=== PATIENT | male | born 2000 | race African-American/Black ===

== ENCOUNTER 2025-09-22 10:22 | Emergency (ER) | payer SELFPAY ==
[2025-09-22 10:33] VITALS: BP 120/67; PULSE 101; RESP 16; TEMP 37.7; O2SAT 99
[2025-09-22 12:29] LABS: Influenza A QL RT-PCR Negative (Negative); Influenza B QL RT-PCR Negative (Negative); RSV RNA, RT-PCR Negative (Negative); SARS-CoV-2 RNA PCR Negative (Negative)
[2025-09-22 12:46] LABS: Strep Group A RT-PCR DETECTED (Negative)
[2025-09-22] MEDS: ACETAMINOPHEN 500 MG TABLET 1000 MG PO (12:48)
[2025-09-22] MEDS: KETOROLAC 10 MG TABLET PO (12:48)
[2025-09-22 13:25] VITALS: BP 122/76; PULSE 80; RESP 16; O2SAT 98
[2025-09-22] MEDS: AMOXICILLIN 500 MG CAPSULE PO (13:26)
--- OUTSIDE RECORDS SUMMARY | 2025-09-22 14:15 | XMS_ITS | Encounter Summary ---
Author Organization [facility] Address 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 Gender Identity Not on file Sexual Orientation Not on file Occupation Industry 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 Not on file Not on file Not on file 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 Not on file Not on file Not on jacob e documented as of this encounter Plan of Treatment Upcoming Encounters Date Type Department Care Team (Late st Contact Info) Description 06/16/2026 8:30 AM CDT Office Visit [facility] Primary Care [place] [address] [place] [address] [place] [address] [place] [address] documented as of this encounter Visit Diagnoses Not on filedocumented in this encounter Care Teams Correctional Lieutenant Relationship Specialty [place] [address] [place] [address] PCP - General Internal Medicine 04/14/20 documented as of this encounter
--- OUTSIDE RECORDS SUMMARY | 2025-09-22 14:15 | XMS_ITS | Encounter Summary ---
Author Organization [facility] Address 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 Gender Identity Not on file Sexual Orientation Not on file documented as of this encounter Plan of Treatment Upcoming Encounters Date Type Department Care Team (Late st Contact Info) Description 06/16/2026 8:30 AM CDT Office Visit [facility] Primary Care [place] [address] [place] [phone] [place] [address] [place] [phone] documented as of this encounter Visit Diagnoses Diagnosis Dermatophytosis of scalp and thomas- Primary documented in this encounter Care Teams Windrower Operator Relationship Specialty [place] [address] [place] [phone] PCP - General Internal Medicine 04/14/20 documented as of this encounter
--- OUTSIDE RECORDS SUMMARY | 2025-09-22 14:15 | XMS_ITS | Clinical Summary ---
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 History of gonorrhea 12/04/2021 Colitis 08/28/2018 Other neutropenia Resolved Problems Problem Noted Date Diagnosed Date Resolved Date Weight loss 08/28/2018 12/04/2021 Abdominal pain 08/28/2018 12/04/2021 Back pain 01/22/2015 12/04/2021 Encounters Date Type Department Care Team Description 09/20/2025 External Device Data STL ABSTRACTION Provider, Abstract 09/20/2025 External Device Data STL ABSTRACTION Provider, Abstract 09/06/2025 External Device Data STL ABSTRACTION Provider, Abstract 07/26/2025 External Device Data STL ABSTRACTION Provider, Abstract from Last 3 Months Immunizations Immunization Administration Dates Next Due (ADACEL/BOOSTRIX)(10 YR UP) TDAP VACCINE, 0.5ML, IM 06/13/2025,04/29/2011 (GARDASIL 9)(9-45 YRS) HUMAN PAPILLOMAVIRUS VACCINE, TYPES 6, 11, 16, 18, 31, 33, 45, 52, 58, NONAVALENT (9VHPV), 2 OR 3 DOSE, IM 04/02/2017,03/11/2016,06/26/2015 (GARDASIL)(9-45 YRS) HUMAN PAPILLOMAVIRUS VACCINE, TYPES 6, 11, 16, 18, QUADRIVALENT (4VHPV), 3 DOSE, IM 04/02/2017,03/11/2016,06/26/2015 (HAVRIX/VAQTA)(12 MO-18 YRS) HEPATITIS A VACCINE 0.5 ML PED/ADOL 2 DOSE, IM 10/04/2005,01/28/2005 (HEPLISAV-B)(18 YR UP) HEPAT ITIS B VACCINE CPG-ADJUVANTED (HEPB-CPG) 2-4 DOSE, IM 04/29/2011,06/27/2000,05/14/2000,10/17 (INFANRIX)(6 WKS-6 YRS) DIPT HERIA, TETANUS TOXOIDS, AND ACCELLULAR PERTUSSIS VACCINE (DTAP), 0.5 ML IM 10/19/2003,04/20/2001,05/14/2000,02/11,1999 (IPOL)(6 WKS AND UP) POLIOVI RANDEE VACCINE, INACTIVATED (IPV), 3 DOSE, SUBCUT OR IM 10/19/2003,04/20/2001,05/14/2000,02/11,1999 (M-M-R II/PRIORIX)(12 MO UP) MEASLES, MUMPS AND RUBELLA VIRUS VACCINE, 0.5 ML IM/SUBCUT 10/19/2003,11/18/2000 (PEDVAXHIB)(2 - 71 MOS) HIB PRP-OMP VACCINE, 3 DOSE, 0.5 ML IM0] 05/14/2000,02/12/2000,1999 (VARIVAX)(12 MOS UP)VARICELL A VIRUS VACCINE (PF) 0.5 ML, SUB CUT 06/15/2008,11/18/2000 HPV, Unspecified Formulation 04/02/2017,03/11/20 16,06/26/2015 Influenza Seasonal Unspecifi ed Formulation IM 08/04/2019,08/11/2006 Influenza Vaccine Split 3+ Yrs PF IM 08/11/2006 Influenza, Unspecified Formulation 08/11/2006 Meningococcal ACWY Vaccine, Unspecified Formulation 03/11/2016,04/29/2011 Meningococcal Polysaccharide Vaccine, Serogroups A, C, Y, W-135, quadrivalent (Mpsv4) SQ 03/11/2016,04/29/2011 Pneumococcal 7-valent conjug ate vaccine IM 12/19/2000,11/18/2000,06/27/2000 Family History Medical History Relation Name Comments Healthy Father Healthy Mother Relation Name Status Comments Father Alive Maternal Grandfather Maternal Grandmother Alive Mother Alive Paternal Grandfather Paternal Grandmother Social History Tobacco Use Types Packs/Day Years Used Date Smoking Tobacco: Never Smokeless Tobacco: Never Tobacco Cessation:Counseling Given: No Alcohol Use Standard Drinks/Week Comments No 0 (1 standard drink = 0.6 oz pur e alcohol) Sex and Gender Information Value Date Recorded Sex Assigned at Not on file 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 Gender Identity Not on file Sexual Orientation Not on file Occupation Industry 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 Not on file Not on file Not on file 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 Not on file Not on file Not on jacob e Last Filed Vital Signs Vital Sign Reading Time Taken Comments Blood Pressure 100/68 06/13/2025 8:55 AM CDT Pulse 88 06/13/2025 8:55 AM CDT Temperature 36.7 C (98 F) 06/13/2025 8:55 AM CDT Respiratory Rate 21 06/13/2025 8:55 AM CDT Oxygen Saturation 99% 06/13/2025 8:55 AM CDT Inhaled Oxygen Concentration - - Weight 74.8 kg (165 lb) 06/13/2025 8:55 AM CDT Height 185.4 cm (6' 1) 06/13/2025 8:55 AM CDT Body Mass Index 21.77 06/13/2025 8:55 AM CDT Plan of Treatment Upcoming Encounters Date Type Department Care Team (Late st Contact Info) Description 06/16/2026 8:30 AM CDT Office Visit [facility] Primary Care [place] [address] [place] [address] [place] [address] [place] [address] Health Maintenance Due Date Last Done Comments HEPATITIS B VACCINES (2 of 4 - HepB-CpG 4-dose series) 2017 04/29/2011, 06/27/2000, 05/14/2000, Additional history exists INFLUENZA VACCINE (#1) 2025 9, 08/11/2006, 08/11/2006 DTAP/TDAP/TD VACCINES (8 - T d or Tdap) 06/13/2035 06/13/2025, 04/29/2011, 10/19/2003, Additional history exists HPV VACCINES Completed 04/02/2017, 03/07, 04/02/2017, Additional history exists CHLAMYDIA SCREENING (ANNUAL) 11-24 YEARS Discontinued 06/13/2025, 07/30/2023, 01/03/2022, Additional history exists Procedures Procedure Name Priority Date/Time Associated Diagnosis Comments GC/CHLAMYDIA, UROGENITAL Routine 06/13/2025 10:04 AM CDT from Last 3 Months or Most Recently Relevant to Health Maintenance Results * GC/CHLAMYDIA, UROGENITAL (06/13/2025 10:04 AM CDT) CHLAMYDIA TRACHOMATIS RNA, TMA, UROGENITAL NOT DETECTED NOT DETECTED [facility] NEISSERIA GONORRHOEAE RNA, TMA, UROGENITAL NOT DETECTED NOT DETECTED [facility] COMMENT INFECTIOUS DISEASE [facility] Comment: The analytical performance characteristics of this assay, when used to test SurePath(TM) specimens have been determined by [facility]. The modifications have not been cleared or approved by the FDA. This assay has been validated pursuant to the CLIA regulations and is used for clinical purposes. For additional information, please refer to https://education.[employer]/faq/GGQ325 (This link is being provided for information/ educational purposes only.) Test Performed at: [facility] [id number] [place] [address] Magnus Guthrie MD 06/13/2025 10:0 4 AM CDT 06/13/2025 10:10 AM CDT us Shauna Palacio MANAGER STRATEGIC ALLIANCES MICROBIOLOGY - GENERA L ORDERABLES Final Result [facility] [phone] [facility] [address] [place] [address] from Last 3 Months or Most Recently Relevant to Health Maintenance Insurance RX [facility] Commercial RX [employer] (INTERNAL) [employer] [facility] [id number] Advance Directives For more information, please contact: [phone] * Full Code (Latest Code Status on File) Date Activated Date Inactivated Comments 08/28/2018 7:11 AM 08/29/2018 2:31 PM Care Teams Joy Operator Helper Relationship Specialty Start [place] [address] [facility] [address] [place] [address] PCP - General Internal Medicine 04/14/20
--- OUTSIDE RECORDS SUMMARY | 2025-09-22 14:15 | XMS_ITS ---
Author Organization Unknown ENCOUNTERS Encounter Performer Location Date Diagnosis Diagnosis Status Pre Admit [place] [id number] [place] [address] [id number] JOSE MANUEL Emergency [facility] [address] [place] [address] [id number] JOSE MANUEL *Note: Encounters from your own facility or health system may be excluded. Allergies, Adverse Reactions, Alerts Allergen Type Severity Identification Date Medications Name Date Quantity Days Supplied GPI Number
--- OUTSIDE RECORDS SUMMARY | 2025-09-22 14:15 | XMS_ITS | Encounter Summary ---
Author Organization [facility] Address 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 Gender Identity Not on file Sexual Orientation Not on file documented as of this encounter Plan of Treatment Upcoming Encounters Date Type Department Care Team (Late st Contact Info) Description 06/16/2026 8:30 AM CDT Office Visit [facility] Primary Care [place] [address] [place] [phone] [place] [address] [place] [address] documented as of this encounter Visit Diagnoses Diagnosis Conjunctival hemorrhage- Primary documented in this encounter Care Teams State Highway Police Officer Relationship Specialty [place] [address] [place] [phone] PCP - General Internal Medicine 04/14/20 documented as of this encounter
--- OUTSIDE RECORDS SUMMARY | 2025-09-22 14:15 | XMS_ITS | Encounter Summary ---
Author Organization [facility] Address 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
--- OUTSIDE RECORDS SUMMARY | 2025-09-22 14:15 | XMS_ITS | Encounter Summary ---
Author Organization [facility] Address [address] [place] [address] Care Team Providers Care Motor Equipment Captain Name Role Phone Emmanuel Wilson MD Primary Care Pr ovider Reason for Visit * Reason Onset Date Comments Needs Orders Written 07/29/2023 Encounter Details Date Type Department Care Team (Late st Contact Info) Description 07/29/2023 Telephone [facility] Internal Medicine - [place] [address] [facility] [address] [place] [address] [place] [address] [place] [address] Needs Orders Written Social History Tobacco Use Types Packs/Day Years Used Date Smoking Tobacco: Never Smokeless Tobacco: Never Alcohol Use Standard Drinks/Week Comments No 0 (1 standard drink = 0.6 oz pur e alcohol) Sex and Gender Information Value Date Recorded Sex Assigned at Not on file 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 Gender Identity Not on file Sexual Orientation Not on file 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 Industry 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 - [employer] 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 on 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 Not on file Not on file [facility]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 Not on file Not on file Not on jacob e documented as of this encounter Miscellaneous Notes * Telephone Encounter - Hui Keenan - 07/29/2023 12:19 PM CDT Order Request STD testing - for all Reason for Request: requesting to get this done LOGAN to rule out any STD Call-back Number: [phone] (home) Home Phone Work Phone documented in this encounter Plan of Treatment Upcoming Encounters Date Type Department Care Team (Late st Contact Info) Description 06/16/2026 8:30 AM CDT Office Visit [facility] Primary Care [place] [address] [facility] [address] [place] [address] [place] [address] [facility] [address] [place] [address] documented as of this encounter Visit Diagnoses Not on filedocumented in this encounter Care Teams Motor Equipment Captain Relationship Specialty [place] [address] [facility] [address] [place] [address] PCP - General Internal Medicine 04/14/20 documented as of this encounter
--- NOTE | 2025-09-22 18:15 | ED_ITS ---
HPI - URI/Sore Throat General Chief Complaint: Upper Respiratory Infection Stated Complaint: sore throat, body aches Time Seen by Provider: 09/22/25 11:12 History of Present Illness HPI Narrative: Patient presenting with body aches, fevers, ongoing for last day along with a sore throat. Exposure to strep Related Data Allergies Allergy/AdvReac Type Severity Reaction Status Date / Time No Known Allergies Allergy Verified 09/22/25 11:45 Review of Systems Review of Systems: All systems reviewed & are unremarkable except as noted in HPI and below Exam Narrative: EXAMINATION OF ORGAN SYSTEMS/BODY AREAS: Constitutional: Vital signs per nursing GENERAL: Appears tired HEAD: Normal with no signs of head trauma. EYES: EOMI, conjunctiva normal ENT: Tonsillar swelling with exudates bilaterally LUNGS: Nonlabored breathing. HEART: Regular rate and rhythm ABD: Soft, nontender to palpation EXT: Normal range of motion SKIN: No rashes or lesions. NEURO: Alert. No gross focal sensory or strength deficits. PSYCH: Normal affect Course Vital Signs Vital signs: Vital Signs Temperature 99.8 F H 09/22/25 10:33 Pulse Rate 101 H 09/22/25 10:33 Respiratory Rate 16 09/22/25 10:33 Blood Pressure 120/67 09/22/25 10:33 Pulse Oximetry 99 09/22/25 10:33 Temperature 99.8 F H 09/22/25 10:33 Pulse Rate 80 09/22/25 13:25 Respiratory Rate 16 09/22/25 13:25 Blood Pressure 122/76 09/22/25 13:25 Pulse Oximetry 98 09/22/25 13:25 Oxygen Delivery Room Air 09/22/25 11:10 MDM MDM Narrative Medical decision making narrative: ED COURSE AND MEDICAL DECISION MAKING: This 24 year old patient presents with symptoms most suggestive of viral upper respiratory tract infection. Lungs are clear bilaterally without any respiratory distress or accessory muscle use. Patient is treated symptomatically with Toradol, dexamethasone, Tylenol. He is positive for strep and amoxicillin is started. Looking and feeling better with improved vital signs. Discharged home in stable condition with expectant management. Return precautions were provided. Procedures: Pulse oximetry interpretation - not hypoxic. Review of medical records. Differential Diagnosis Differential Diagnosis: Strep, viral syndrome, mono Lab Data Labs: Lab Results 09/22/25 Range/Units 11:32 Influenza A (RT-PCR) Negative (Negative) Influenza B (RT-PCR) Negative (Negative) RSV (RT-PCR) Negative (Negative) SARS-CoV-2 RNA (RT-PCR) Negative (Negative) Group A Strep (PCR) Detected A (Negative) Discharge Plan Discharge Clinical Impression: Strep throat Patient Disposition: Home Condition: Stable Instructions: Antibiotic Form, Strep Throat (ED) Additional Instructions: Please take the antibiotics as prescribed and come back to the ER for any further issues. Patient Language: Vietnamese Prescriptions: New amoxicillin 500 mg capsule 500 mg PO Q8H 10 Days Qty: 30 0RF ibuprofen 600 mg tablet 600 mg PO TID PRN (Reason: fever or pain) Qty: 30 0RF Follow-up/Referrals: PHYSICIAN NOT ON STAFF,NONSTAFF [Non-Staff]
== END 2025-09-22 13:25 | disposition home or self-care (01) ==
PROVIDERS: Emergency Provider Emergency Medicine
DX: J02.0 Streptococcal pharyngitis (principal); Z20.822 Contact with and (suspected) exposure to COVID-19
CPT/HCPCS: 87637; 87651; 99283; A9270; J8540